=== PATIENT | female | born 1965 | race Caucasian/White ===

== ENCOUNTER 2018-07-31 12:08 | Emergency (ER) | payer MEDICAID ==
[~2018-07-31] VITALS: Ht 165.1 cm; Wt 83.9 kg
[2018-07-31 12:16] VITALS: Ht 165.1 cm; Wt 83.9 kg
[2018-07-31 14:33] VITALS: BP 114/70
== END 2018-07-31 14:33 | disposition home or self-care (01) ==
LOC: ED 12:08
DX: M79.18 Myalgia, other site (principal); M77.9 Enthesopathy, unspecified; Z88.1 Allergy status to other antibiotic agents; Z98.890 Other specified postprocedural states; Z90.49 Acquired absence of other specified parts of digestive tract
CPT/HCPCS: J1100; J1885

== ENCOUNTER 2019-01-26 20:33 | Emergency (ER) | payer MEDICAID ==
[~2019-01-26] VITALS: Ht 165.1 cm; Wt 81.6 kg
[2019-01-26 20:46] VITALS: BP 121/62
== END 2019-01-26 22:55 | disposition home or self-care (01) ==
LOC: ED 20:33
DX: R21 Rash and other nonspecific skin eruption (principal); L29.9 Pruritus, unspecified; Z88.0 Allergy status to penicillin; Z90.49 Acquired absence of other specified parts of digestive tract; Z98.890 Other specified postprocedural states
CPT/HCPCS: J1100; J1200